=== PATIENT | male | born 1975 | race Caucasian/White ===

== ENCOUNTER 2020-07-05 11:16 | Emergency (ER) | payer BC ==
[~2020-07-05] VITALS: Ht 180.3 cm; Wt 113.6 kg
[2020-07-05 11:20] VITALS: BP 146/73
[2020-07-05 11:43] LABS: COVID AG,FIA SOURCE NASOPHARYNGEAL
== END 2020-07-05 12:02 | disposition home or self-care (01) ==
LOC: EMS 11:21
DX: Z20.828 Contact with and (suspected) exposure to other viral communicable diseases (principal)
CPT/HCPCS: 87426; 99283; C9803